=== PATIENT | male | born 1970 | race Native Hawaiian/Other Pacific Islander ===

== ENCOUNTER 2017-10-16 16:21 | Inpatient (IN) | payer BC ==
[~2017-10-16] VITALS: Ht 165.1 cm; Wt 74.8 kg
[2017-10-16] MEDS ORDERED: CLON0.1T PO (16:38)
[2017-10-16] MEDS ORDERED: LOSA1TAB15 PO (16:38)
[2017-10-16] MEDS ORDERED: hydrALAZINE HCL 20 MG/1 ML VIAL IV ONE (17:15)
--- NOTE | 2017-10-16 17:25 | NUR ---
Hydralazine IV not available per pharmacy, ER physician notified.
[2017-10-16 17:36] LABS: BASOPHILS # (AUTO) 0.1 K/uL (0.0-8.0); BASOPHILS % (AUTO) 0.8 % (0.0-2.0); EOSINOPHILS # (AUTO) 0.1 K/uL (0.0-0.7); EOSINOPHILS % (AUTO) 1.7 % (0.0-7.0); HEMATOCRIT 44.2 % (36.7-47.1); HEMOGLOBIN 15.2 g/dL (12.5-16.3); LYMPHOCYTES # (AUTO) 1.5 K/uL (20.0-40.0); LYMPHOCYTES % (AUTO) 20.4 % (20.5-51.5); MEAN CORPUSCULAR HEMOGLOBIN 28.3 uug (23.8-33.4); MEAN CORPUSCULAR HGB CONC 34 g/dL (32.5-36.3); MEAN CORPUSCULAR VOLUME 82.6 fL (73.0-96.2); MONOCYTES # (AUTO) 0.5 K/uL (2.0-10.0); MONOCYTES % (AUTO) 6.8 % (0.0-11.0); NEUTROPHILS # (AUTO) 5.3 K/uL (1.8-8.9); NEUTROPHILS % (AUTO) 70.3 % (38.5-71.5); PLATELET COUNT (AUTO) 225 K/uL (152-348); RED BLOOD CELL COUNT(AUTO) 5.35 MIL/uL (4.06-5.63); WHITE BLOOD COUNT (AUTO) 7.5 K/uL (3.6-10.2)
[2017-10-16] MEDS ORDERED: LABETALOL HCL 100 MG/20 ML VIAL IV ONE ×3 (17:45→19:45)
[2017-10-16 17:49] LABS: CREATININE 1.1 mg/dL (0.6-1.3); POTASSIUM 3.7 mmol/L (3.5-5.1)
[2017-10-16] MEDS ORDERED: LABETALOL HCL 100 MG/20 ML VIAL ONE ×2 (17:55→20:07)
--- NOTE | 2017-10-16 19:07 | NUR ---
Paged Eppic panel as requested by Dr Gómez. Waiting for Dr Gibbons
--- NOTE | 2017-10-16 19:24 | NUR ---
iv placed earlier meds admin, monitor shows nsr, opt to be tele admit pending, sbar report to jose guadalupe aguilar
--- NOTE | 2017-10-16 19:39 | NUR ---
Dr Gómez spoke with Dr Gibbons for admission
--- NOTE | 2017-10-16 20:39 | NUR ---
Transfered to 2nd floor Tele via [place]
[2017-10-16 20:40] VITALS: BP 190/101
[2017-10-16] MEDS ORDERED: ONDANSETRON 4 MG/2 ML VIAL IV PRN (21:30)
[2017-10-16] MEDS ORDERED: hydrALAZINE HCL 25 MG TABLET PO PRN (21:30)
[2017-10-16] MEDS ORDERED: ZOLPIDEM 5 MG TABLET PO PRN (21:30)
[2017-10-16] MEDS ORDERED: ACETAMINOPHEN 325 MG TABLET PO PRN (21:30)
[2017-10-16] MEDS ORDERED: HYDROCODONE/APAP 5-325MG TABLET PO PRN (21:30)
[2017-10-16] MEDS ORDERED: MORPHINE SULFATE 2 MG/1 ML DISP.SYRIN IV PRN (21:30)
[2017-10-16] MEDS ORDERED: MAGNESIUM HYDROXIDE 30 ML LIQUID UDC PO PRN (21:30)
[2017-10-16] MEDS ORDERED: NITROGLYCERIN OINT 1 GM PACKET TP PRN (21:30)
--- NOTE | 2017-10-16 21:30 | NUR ---
Admitted this 47 y/o male patient to Dx. Hypertensive Urgency, awake alert & oriented no SOB denies chest pain. monitor and storage bin tender applied- Tele shows normal sinus rhythm. Patient anxious about current condition. Noted high BP 190/108 patient is asymptomatic, denies any numbness on extremities. Patient's recent Troponin 0.122, MD aware. Repeat Troponin level was ordered.
[2017-10-16] MEDS: AMLODIPINE 5 MG TABLET PO SCH (21:57)
--- NOTE | 2017-10-16 22:15 | NUR ---
Apresoline 25 mg po & Nitrobid 1 gm given. Dinner tray provided, patient tolerated. Repeat troponin result 0.082, patient remains asymptomatic sinus rhtyhm on the monitor. Resting comfortably. Spouse at bedside.
[2017-10-17] VITALS: BP 136/99
--- NOTE | 2017-10-17 | NUR ---
Current BP 133/99 sinus rhythm on the monitor.
--- NOTE | 2017-10-17 03:00 | NUR ---
Complaining of headache, Tylenol 650 mg po given.
[2017-10-17 04:00] VITALS: BP 141/92
--- NOTE | 2017-10-17 05:42 | NUR ---
BP slightly controlled, 141/92. Sinus rhythm on the monitor.
[2017-10-17 06:59] LABS: BILIRUBIN,TOTAL 0.6 mg/dL (0.2-1.0); CREATININE 1.2 mg/dL (0.6-1.3); MAGNESIUM 1.8 mg/dL (1.8-2.4); PHOSPHOROUS 4.2 mg/dL (2.5-4.9); POTASSIUM 3.7 mmol/L (3.5-5.1); TOTAL PROTEIN, SERUM 7.7 g/dL (6.4-8.2)
[2017-10-17] MEDS ORDERED: PANTOPRAZOLE SODIUM 40 MG TABLET.DR PO SCH (07:00)
[2017-10-17 07:08] LABS: THYROID STIMULATING HORMONE 1.097 mIU/mL (0.358-3.740)
[2017-10-17 07:27] LABS: BASOPHILS % (AUTO) 0.3 % (0.0-2.0); EOSINOPHILS % (AUTO) 0.4 % (0.0-7.0); HEMATOCRIT 42.6 % (36.7-47.1); HEMOGLOBIN 14.6 g/dL (12.5-16.3); LYMPHOCYTES % (AUTO) 10.1 % (20.5-51.5); MEAN CORPUSCULAR HEMOGLOBIN 28.4 uug (23.8-33.4); MEAN CORPUSCULAR HGB CONC 34 g/dL (32.5-36.3); MEAN CORPUSCULAR VOLUME 83.2 fL (73.0-96.2); MONOCYTES # (AUTO) 0.4 K/uL (2.0-10.0); MONOCYTES % (AUTO) 4.4 % (0.0-11.0); NEUTROPHILS # (AUTO) 8.3 K/uL (1.8-8.9); NEUTROPHILS % (AUTO) 84.8 % (38.5-71.5); PLATELET COUNT (AUTO) 224 K/uL (152-348); RED BLOOD CELL COUNT(AUTO) 5.12 MIL/uL (4.06-5.63); WHITE BLOOD COUNT (AUTO) 9.7 K/uL (3.6-10.2)
--- NOTE | 2017-10-17 07:30 | NUR ---
AWAKE ALERT COOPERATE WELL C/O OF N/V AT THIS TIME MED PRN ZOFRAN GIVEN ORDER VS TAKEN STABLE STILL HIGH BP RESTING WELL IN BED WITH CALL LIGHT IN REACH AND FAMILY AT BEDSIDE
--- NOTE | 2017-10-17 08:30 | NUR ---
NAUSEA SUBSIDE EAT BREAKFAST WELL NO NAUSEA
[2017-10-17] MEDS: AMLODIPINE 5 MG TABLET PO SCH (08:42)
[2017-10-17] MEDS ORDERED: LOSARTAN PO SCH (09:00)
[2017-10-17] MEDS ORDERED: HYDROCHLOROTHIAZIDE 25 MG TABLET PO SCH (09:00)
[2017-10-17] MEDS ORDERED: METOPROLOL TARTRATE 50 MG TABLET PO SCH (09:00)
[2017-10-17] MEDS ORDERED: ASPIRIN 325 MG TABLET PO SCH (09:00)
[2017-10-17] MEDS ORDERED: [UNRECOGNIZED DRUG - OTHER] PO SCH (09:00)
[2017-10-17] MEDS ORDERED: LOSARTAN POTASSIUM 50 MG TABLET PO SCH (09:00)
[2017-10-17] MEDS ORDERED: HYDROCHLOROTHIAZIDE PO SCH (09:00)
[2017-10-17 11:09] VITALS: BP 130/87
[2017-10-17] MEDS ORDERED: ATORVASTATIN 20 MG TABLET PO SCH ×2 (11:30→21:00)
[2017-10-17 12:15] VITALS: BP 126/91
--- NOTE | 2017-10-17 13:00 | NUR ---
ECCHO CARDIOGRAM AT BEDSIDE CHIDI PROCEDURE WELL DR GILLIS SEE PATIENT THIS AM ,NO PAIN OR SOB VS STABLE EAT WELL NO N./V
--- NOTE | 2017-10-17 14:00 | NUR ---
NO PAIN OR SOB POSS D/C HOME TODAY D/C INSTRUCTION GIVEN TO PT AND FAMILY ,VERBALIZES UNDERSTAND AND EDUCATION PK GIVEN
--- NOTE | 2017-10-17 15:00 | NUR ---
DR GILLIS SEEN PATIENT TODAY AND ORDER OK TO D/C HOME WITH DR JAQUEZ ,D/C INSTRUCTION GIVEN TO PT /FAMILY REGSRDING F/U WITH OWN PMD CALL FOR APPIONTMENT CONTINUE HOME MEDICINE ORDER ,AND PHAMACY WAS CALL TO EXPLAINED HOME MEDICINE ,UNDERSTAND AND SIGNS D/C SHEET HL D/C PRIOR DISCHARGE HOME TODAY
[2017-10-17 15:20] VITALS: BP 124/77
[2017-10-17] MEDS ORDERED: ASPI81TA31 PO (16:17)
[2017-10-17] MEDS ORDERED: METO50TA16 PO (16:17)
[2017-10-17] MEDS ORDERED: AMLO5TAB2 PO (16:17)
--- NOTE | 2017-10-17 16:50 | NUR ---
D/C HOME WITH HIS BELONGING ACCOMPANIES WITH FAMILY CONDITION STABLE
[2017-10-18] MEDS ORDERED: ASPIRIN 81 MG TAB.CHEW PO SCH (09:00)
== END 2017-10-17 17:00 | disposition home or self-care (01) | DRG 282 ==
LOC: ER 16:22 → TELE 20:34 → MED 10-17 15:00
PROVIDERS: ADMIT Internal Medicine; ATTEND Internal Medicine
DX: I16.0 Hypertensive urgency (principal); I21.A1 Myocardial infarction type 2; I11.9 Hypertensive heart disease without heart failure; E78.5 Hyperlipidemia, unspecified; Z82.49 Family history of ischemic heart disease and other diseases of the circulatory system; Z83.3 Family history of diabetes mellitus; R73.9 Hyperglycemia, unspecified; Z87.891 Personal history of nicotine dependence; Z79.82 Long term (current) use of aspirin
CPT/HCPCS: 36415; 70030-TC; 71045; 83550; 83735; 84100; 84443; 85025; 85610; 93005; 93307; 94640; A4663; J2405; J3490

== ENCOUNTER 2018-08-05 11:19 | Day surgery (SDC) | payer BC, OTHER ==
[~2018-08-05 11:19] MED LIST: AMLO5TAB9 PO; ASPI81TA31 PO; CLON0.1T PO; LOSA1TAB15 PO; METO50TA16 PO
[2018-08-05] MEDS ORDERED: IV NORMAL SALINE 1000 ML BAG IV ONE (11:20)
[2018-08-05] MEDS ORDERED: SIMETHICONE 40 MG/0.6 ML, 30ML BOTTLE MC ONE (11:20)
[2018-08-05] MEDS ORDERED: IRR STERIL WATER FOR IRR 1000 ML BOTTLE IR ONE (11:20)
[2018-08-05] MEDS ORDERED: PROPOFOL 200 MG/20 ML BOTTLE IV ONE (11:20)
[2018-08-05 11:58] LABS: *BLOOD, URINE 2+ (NEGATIVE); *CLARITY,URINE SLIGHTLY CLOUDY (CLEAR); *COLOR,URINE DARK YELLOW (YELLOW); *KETONES,URINE NEGATIVE (NEGATIVE); *UROBILINOGEN,URINE 0.2 E.U./dl (NORMAL); LEUKOCYTE ESTERASE ,URINE NEGATIVE (NEGATIVE); NITRITE, URINE NEGATIVE (NEGATIVE); PH,URINE 5.5 (5.0-8.0); UGLUCOSE NEGATIVE (NEGATIVE)
[2018-08-05 12:00] LABS: BASOPHILS # (AUTO) 0.1 K/uL (0.0-8.0); CREATININE 1.4 mg/dL (0.6-1.3); EOSINOPHILS # (AUTO) 0.2 K/uL (0.0-0.7); EOSINOPHILS % (AUTO) 2.7 % (0.0-7.0); HEMATOCRIT 43.4 % (36.7-47.1); HEMOGLOBIN 14.6 g/dL (12.5-16.3); LYMPHOCYTES # (AUTO) 1.7 K/uL (20.0-40.0); LYMPHOCYTES % (AUTO) 21.9 % (20.5-51.5); MEAN CORPUSCULAR HEMOGLOBIN 27.7 uug (23.8-33.4); MEAN CORPUSCULAR HGB CONC 34 g/dL (32.5-36.3); MEAN CORPUSCULAR VOLUME 82.5 fL (73.0-96.2); MONOCYTES # (AUTO) 0.6 K/uL (2.0-10.0); MONOCYTES % (AUTO) 8.4 % (0.0-11.0); PLATELET COUNT (AUTO) 267 K/uL (152-348); POTASSIUM 3.5 mmol/L (3.5-5.1); RED BLOOD CELL COUNT(AUTO) 5.26 MIL/uL (4.06-5.63); WHITE BLOOD COUNT (AUTO) 7.5 K/uL (3.6-10.2)
[2018-08-05 12:05] LABS: BILIRUBIN,TOTAL 1.1 mg/dL (0.2-1.0); TOTAL PROTEIN, SERUM 8.6 g/dL (6.4-8.2)
[2018-08-05 12:06] LABS: *BILIRUBIN,URIN 1+ (NEGATIVE)
[2018-08-05 12:14] LABS: BACTERIA,URINE NONE SEEN /HPF (NONE SEEN); SQUAMOUS EPITHELIAL CELL,UR NONE SEEN /HPF (NONE SEEN)
[2018-08-05 12:15] LABS: MUCUS,URINE MANY /LPF (0-FEW)
== END 2018-08-05 16:10 | disposition home or self-care (01) ==
LOC: DS 11:19
PROVIDERS: ATTEND Internal Medicine Gastroenterology
DX: Z12.11 Encounter for screening for malignant neoplasm of colon (principal); K64.4 Residual hemorrhoidal skin tags; K64.8 Other hemorrhoids; E78.00 Pure hypercholesterolemia, unspecified; I10 Essential (primary) hypertension; Z87.891 Personal history of nicotine dependence; Z79.899 Other long term (current) drug therapy; Z79.82 Long term (current) use of aspirin; Z82.49 Family history of ischemic heart disease and other diseases of the circulatory system; Z79.01 Long term (current) use of anticoagulants
CPT/HCPCS: 36415; 45378; 71045; 80053; 81000; 81001; 85025; 85730; 87086; 93005; J3490; A4217; A4663; J7030